=== PATIENT | male | born 1960 | race Caucasian/White ===

== ENCOUNTER 2023-01-13 12:54 | Observation (INO) ==
[2023-01-13 13:43] LABS: Hemoglobin 17.4 g/dl (14.0-18.0); Mean Corpuscular Hemoglobin 29.5 pg (25.0-34.0); Mean Corpuscular Hgb Conc 34.8 g/dL (32.0-36.0); Mean Corpuscular Volume 84.9 fL (80.0-100.0); Platelet Count 290 K/uL (130-400); RDW Standard Deviation 40.5 fL (36.4-46.3); Red Blood Count 5.89 M/uL (4.70-6.10); White Blood Count 9.81 K/ul (4.8-10.8)
[2023-01-13 14:01] LABS: Albumin Globulin Ratio 1.7 (0.9-2); Albumin Level 4.5 gm/dl (3.4-5.0); BUN Creatinine Ratio 12.7 (10-20); Bilirubin,Total 0.4 mg/dl (0.2-1.0); Calcium 9.7 mg/dl (8.6-10.3); Creatinine Clr Calc Pharmacy 83.9 ml/min; Est GFR (African American) 90.2 ml/min; Est GFR (Non-African American) 77.9 ml/min; Globulin 2.7 gm/dl (2.5-4.0); Total Protein 7.2 gm/dl (6.0-8.3)
[2023-01-13 14:16] LABS: INR 0.9 (0.9-1.1); Partial Thromboplastin Ratio 0.9; Partial Thromboplastin Time 24.4 Seconds (21.0-31.0); Prothrombin Time 10.1 Seconds (9.0-12.0)
[2023-01-13 14:29] LABS: ALC (manual) 5.79 K/uL (1.2-3.4); ANC (manual) 3.53 K/uL (1.4-6.5); Basophils % (manual) 1 %; Eosinophils % (manual) 2 %; Lymphocytes # (manual) 1.57 K/uL (1.2-3.4); Lymphocytes % (manual) 16 %; Monocytes % (manual) 2 %; Neutrophils # (manual) 3.53 K/uL (1.40-6.50); Neutrophils % (manual) 36 %; Reactive Lymphocytes # (manual) 4.22 K/uL; Reactive Lymphocytes % (manual) 43 %; Smudge Cells Present
[2023-01-13] MEDS ORDERED: ASPIRIN CHEW 324 MG PO STA (14:53)
[2023-01-13] MEDS ORDERED: NITROGLYCERIN 2% OINTMENT 30GM TUBE EXT STA (14:53)
--- NOTE | 2023-01-13 15:01 | Emergency Department Note ---
Impression & Plan Precordial chest pain, Diaphoresis, History of coronary artery disease, Hypertension ED Provider Note NAME: MAINOR IQBAL AGE: 62 SEX: M : 1960 ARRIVES VIA: Walk-In INFORMANT: [Patient][family] ED PROVIDER(S): [Jimenez Plunkett MD] CHIEF COMPLAINT: Chest pain HISTORY OF PRESENT ILLNESS: The patient is a 62-year-old male who presents to the ER with 2 days of central chest pain without radiation. The pain typically seems to be present at rest. His pain last for about 15 minutes or so. Yesterday, the pain was intense and he was short of breath and sweating. He took 1 nitroglycerin and things seemed better. He took nitroglycerin again later yesterday evening for similar pain without sweating. Today, the patient has had intermittent bouts of chest pain but has not taken nitroglycerin. The pain has not been as severe as yesterday. The patient denies any recent exertional chest pain or shortness of breath. He does have a history of coronary disease and had 1 stent placed in 2010. The patient was to see [facility] cardiology this week, in 2 days. The patient states that he feels very similar to how he felt when he had his previous stent placed. PMHx/PSHx: See Below SOCIAL HISTORY: See Below. PHYSICAL EXAM: GENERAL: Patient is in no acute distress. HEENT: No acute trauma, normocephalic atraumatic, mucous membranes moist, no nasal congestion. NECK: No stridor, no adenopathy, no meningismus, trachea is midline. LUNGS: Clear to auscultation bilaterally, no wheeze, no rhonchi, breath sounds equal. HEART: Without murmurs gallops or rubs, regular rate and rhythm. ABDOMEN: Soft, nontender, bowel sounds positive, no peritonitis. EXTREMITIES: No cyanosis or edema, full range of motion of all the joints without pain or difficulty, no signs for acute trauma. NEUROLOGIC: Oriented x 3, no acute motor or sensory deficits, no focal weakness. SKIN: No rash, no jaundice, no diaphoresis. DIFFERENTIAL DIAGNOSIS: ME, angina, aortic dissection, PE, musculoskeletal pain, reflux, among others. EMERGENCY DEPARTMENT COURSE/PROCEDURES: Prior/Outside records reviewed: Previous cardiology note. ECG per my interpretation: Indication was chest pain. The ECG shows a normal sinus rhythm with a rate of 68. There is no ST elevation, no PVCs. The QTc is 425. Continuous Cardiac Monitoring per my interpretation: An order was placed for continuous cardiac monitoring. The monitor shows a rate of 55 with sinus bradycardia. MEDICAL DECISION MAKING: There is no leukocytosis or worrisome anemia. There is a normal platelet count. No coagulopathy. No renal failure or significant electrolyte abnormality. No concerning liver enzyme elevation. ECG shows a normal sinus rhythm, no ischemia. Cardiac enzyme testing x1 is not consistent with acute cardiac injury. Chest x-ray per my review does not show mediastinal widening, pneumonia or pneumothorax. On exam, the patient was hypertensive. The patient was given nitroglycerin paste. He was given oral aspirin. The patient presents with precordial chest pain. The pain was severe enough yesterday that he was sweating and had to use nitroglycerin. The nitroglycerin did help his discomfort. He has had previous coronary stenting. The patient is in need of a hospital stay and further cardiac work-up. I did speak with the patient and case management. Of note, his blood pressure did seem to improve after the addition of the nitroglycerin paste. DISPOSITION: Patient's presentation and findings warrant a hospital stay. Past Med/Surg History Medical History CAD (coronary atherosclerotic disease) HLD (hyperlipidemia) HTN (hypertension) with goal to be determined Surgical History (Updated 01/13/23 @ 16:05 by Renae Nugent PA-C) H/O shoulder surgery Family History (Updated 01/13/23 @ 16:19 by Renae Nugent PA-C) Mother Coronary heart disease bypass in 70s Father Coronary heart disease bypass in 70s Social History Smoking Status: Never smoker Feels Safe at Home: Yes Allergies Allergies Allergy/AdvReac Type Severity Reaction Status Date / Time pravastatin AdvReac "Didn't Verified 01/13/23 15:04 feel good" rosuvastatin [From Crestor] AdvReac Muscle Pain Verified 01/13/23 15:04 Home Meds Home Medications Medication Instructions Recorded Confirmed aspirin 81 mg tablet,delayed 81 mg PO DAILY 01/06/23 01/13/23 release (Adult Aspirin Regimen) ascorbic acid (vitamin C) 1,000 mg 1,000 mg PO DAILY 01/13/23 01/13/23 tablet (Vitamin C) atorvastatin 20 mg tablet 20 mg PO DAILY 01/13/23 01/13/23 multivitamin 2 tab PO DAILY 01/13/23 01/13/23 nitroglycerin 0.4 mg sublingual See Rx Instructions .Route .COMPLEX 01/13/23 01/13/23 tablet Results & Data (ED) Vital Signs Vital Signs - 24 hr 01/13/23 13:04 01/13/23 15:01 01/13/23 15:01 Temperature 36.6 C Temperature Source Temporal Artery Scan Pulse Rate 68 Pulse Rate [Right Finger] 56 L Pulse Rhythm Respiratory Rate 20 14 Respiratory Effort / Characteristics Non-Labored Non-Labored Spontaneous Respiratory Depth Normal Normal Blood Pressure 201/112 H Blood Pressure [Left Arm] 149/86 H Blood Pressure Mean 141 Blood Pressure Mean [Left Arm] 107 Pulse Oximetry 96 97 97 Oxygen Delivery Method Room Air Room Air Room Air Sepsis Recent Fever Within 48 Hours No Sepsis New/Unexplained Change in Mental Status N/A Sepsis Action Taken by Nursing No Action Required 01/13/23 15:01 01/13/23 15:04 Temperature Temperature Source Pulse Rate 55 L 56 L Pulse Rate [Right Finger] Pulse Rhythm Regular Respiratory Rate 18 Respiratory Effort / Characteristics Respiratory Depth Blood Pressure Blood Pressure [Left Arm] Blood Pressure Mean Blood Pressure Mean [Left Arm] Pulse Oximetry 97 Oxygen Delivery Method Room Air Sepsis Recent Fever Within 48 Hours Sepsis New/Unexplained Change in Mental Status Sepsis Action Taken by [facility] Medications Current Medication List: was personally reviewed by me Laboratory Data Attestation: I reviewed the patient's lab results. 01/13/23 13:18 01/13/23 13:18 Lab Results 01/13/23 01/13/23 01/13/23 Range/Units 13:18 13:18 13:18 WBC 9.81 (4.8-10.8) K/ul RBC 5.89 (4.70-6.10) M/uL Hgb 17.4 (14.0-18.0) g/dl Hct 50.0 (42.0-52.0) % MCV 84.9 (80.0-100.0) fL MCH 29.5 (25.0-34.0) pg MCHC 34.8 (32.0-36.0) g/dL RDW Std Deviation 40.5 (36.4-46.3) fL RDW Coeff of Gabby 13.0 (11.5-14.5) % Plt Count 290 (130-400) K/uL MPV 8.0 L (9.4-12.4) fL Neutrophils % (Manual) 36 % Lymphocytes % (Manual) 16 % Reactive Lymphs % (Man) 43 % Monocytes % (Manual) 2 % Eosinophils % (Manual) 2 % Basophils % (Manual) 1 % Neutrophils # (Manual) 3.53 (1.40-6.50) K/uL Total Absolute Neuts 3.53 (1.4-6.5) K/uL Lymphocytes # (Manual) 1.57 (1.2-3.4) K/uL Reactive Lymphs # 4.22 K/uL Total Abs Lymphocytes 5.79 H (1.2-3.4) K/uL Monocytes # (Manual) 0.20 (0.11-0.59) K/uL Eosinophils # (Manual) 0.20 (0-0.50) K/uL Basophils # (Manual) 0.10 (0-0.2) K/uL Smudge Cells Present Blood Smear Review PT 10.1 (9.0-12.0) Seconds INR 0.9 (0.9-1.1) APTT 24.4 (21.0-31.0) Seconds PTT Ratio 0.9 Sodium 138 (136-145) mmol/L Potassium 4.0 (3.5-5.1) mmol/L Chloride 105 (98-107) mmol/L Carbon Dioxide 28 (21-32) mmol/L Anion Gap 5 (3-11) BUN 13 (6-23) mg/dl Creatinine 1.02 (0.6-1.4) mg/dl Est Cr Clr Drug Dosing 83.9 ml/min Est GFR ( Amer) 90.2 ml/min Est GFR (Non-Af Amer) 77.9 ml/min BUN/Creatinine Ratio 12.7 (10-20) Glucose 110 H (70-99(Fasting)) mg/dl Calcium 9.7 (8.6-10.3) mg/dl Magnesium 2.2 (1.7-2.4) mg/dl Total Bilirubin 0.4 (0.2-1.0) mg/dl AST 20 (13-39) U/L ALT 19 (7-52) U/L Alkaline Phosphatase 61 (34-104) U/L Troponin I High Sens 5.0 (0-20) pg/ml Total Protein 7.2 (6.0-8.3) gm/dl Albumin 4.5 (3.4-5.0) gm/dl Globulin 2.7 (2.5-4.0) gm/dl Albumin/Globulin Ratio 1.7 (0.9-2) Administered Medications Famotidine 20 mg/ Syringe 5 mls @ 2.5 mls/min IV QAM FABRICE Stop: 02/12/23 19:29 Last Admin: 01/13/23 20:15 Dose: 2.5 mls/min Documented By: DIAMOND Discontinued Medications Al Hydrox/Mg Hydrox/Simethicone (Aluminum/Magnesium Susp 30 Ml Udc) 15 ml PO NOW STA Stop: 01/13/23 16:10 Last Admin: 01/13/23 16:27 Dose: 15 ml Documented By: FABRICIO Aspirin (Aspirin Chew 324 Mg) 324 mg PO NOW STA Stop: 01/13/23 14:54 Last Admin: 01/13/23 14:58 Dose: 324 mg Documented By: JENNIFER Nitroglycerin (Nitroglycerin 2% Ointment 30gm Tube) 1 inch EXT NOW STA Stop: 01/13/23 14:54 Last Admin: 01/13/23 14:58 Dose: 1 inch Documented By: JENNIFER Imaging Data Radiologist's Impression: Chest X-Ray 01/13/23 13:07 XR chest 1V not portable HISTORY: 62 years-old Male Chest pain, nonspecific COMPARISON: None TECHNIQUE: PA view of the chest FINDINGS: Cardiomediastinal and hilar silhouettes are within normal limits. There is no pneumothorax, pleural effusion, airspace consolidation or pulmonary edema. Bones appear grossly intact. IMPRESSION: No acute process. ACT 112: Negative or not required by law. The above report was generated using voice recognition software. It may contain grammatical, syntax or spelling errors. Electronically signed by: Louie Neff M.D. 01/13/2023 3:09 PM Discharge Plan Visit Data Chief Complaint: Chest Pain Stated Complaint: CHEST PAIN ED Provider: Jimenez Plunkett Discharge Problem: Precordial chest pain, Diaphoresis, History of coronary artery disease, H ypertension Patient Disposition: Admitted As Inpatient Condition: Fair Discharge Instructions Interventions: ED Discharge Assessment Last Done: 01/13/23 18:58 Hypertension Qualifiers: Hypertension type: unspecified Qualified Code(s): I10 - Essential (primary) hypertension
--- NOTE | 2023-01-13 15:11 | XRay Report ---
XR chest 1V not portable HISTORY: 62 years-old Male Chest pain, nonspecific COMPARISON: None TECHNIQUE: PA view of the chest FINDINGS: Cardiomediastinal and hilar silhouettes are within normal limits. There is no pneumothorax, pleural e ffusion, airspace consolidation or pulmonary edema. Bones appear grossly intact. IMPRESSION: No acute process. ACT 112: Negative or not required by law. The above report was generated using voice recognition software. It may contain grammatical, syntax o r spelling errors. Electronically signed by: Louie Neff M.D. 01/13/2023 3:09 PM
--- NOTE | 2023-01-13 15:18 | History & Physical Report ---
Date of Service January 13, 2023 Assessment & Plan (1) Chest pain: Plan: 62yo male w/ some noncompliance w/ medical management at home with hx CAD/BONNIE to LAD and in-stent [facility] presented with chest pain x 2 days, central in nature without radiation, feeling similar to when he had initial episodes. CXR w/o acute process EKG NSR without ST elevation, trop 5.0 on initial high sensitivity testing Admit to med/tele Trend troponin x2 additional sets Schedule nitro-paste q6h, monitor BP Lisinopril 5mg to start in AM, encourage compliance/titrate as needed Hydralazine available for further significant elevations ECHO ordered Continue ASA 81mg daily GI cocktail x 1, monitor response (given improvement w/ nitro, underlying reflux/Gaviscom use OTC) -- schedule pepcid IVP daily in meantime, consider PPI Pain control/antiemetics prn Cards consult ([place] [facility], prior followed by Dr Islas from [facility]) messaged Dr Silveira, will make NPO at midnight for possible consideration for cath in AM given similar symptoms when having instent thrombosis, however prior cath report rec medical management encouragement to be taken for continued counseling in adherance/importance of medications, daily ASA and statin use as well as BP control EKG w/ CP Heparin SQ Monitor labs, A1c, lipids in AM (2) CAD (coronary atherosclerotic disease): Plan: Hx CAD s/p BONNIE to LAD w/ instent-stenosis in November 2011, rec'd to continue medical management and aggressive risk factor/lifestyle modifications. Followed previously by [facility], Dr Sabino Love but switching to Dr Silveira -- office visit in August noting BP 140/80s, NOT taking antihypertensives Dr Silveira consulted, discussed and will make NPO at midnight in case of cath cons ideration for tomorrow Continue nitro-paste as above, lipitor 20mg (for now), ASA 81mg daily Management as outlined above Compliance w/ medical regiment o be encouraged (3) HTN (hypertension) with goal to be determined: Plan: BP elevated on admission significantly to 200s/100s, nitropaste provided Per most recent cardiology note from August 2022 noting patient w/ uncontrolled HTN, not interesting in taking his lisinopril at that time -- encouraged compliance, consider switching to losartan if isssues Low salt diet encouraged AHA diet Nitropaste for CP as above, hydralazine available PRN Monitor BP (4) HLD (hyperlipidemia): Plan: Also noting uncontrolled cholesterol and was provided GoodRx coupon for 12.18$ for 90 day supply but reported too expensive during prior office visit -- he notes he had not been taking this but has been more compliant, but not taking every day Given hx CAD/instent thrombosis as above, likely should be on high intensity statin. Issues w/ pravastatin/crestor in the past Continue lipitor 20mg daily for now Lipid panel in am, adjustment in statin pending further work-up/eval History of Present Illness Chief Complaint: chest pain x 2 days Primary Care Provider: NO PCP 62yo male with PMHx significant for CAD (cath 2010 with BONNIE to LAD, positive stress testing in November 2011 and cath following showing stent present in proximal LAD which has 20% in-stent restenosis, 30% ostial diagonal disease present) presenting with mid chest pain x 2 days. Most recent exercise echo Mar 2021 without inducible ischemia. Pain reported present at rest, lasting about 15minutes ago starting 2 days ago. He reports he had taken a nitro w/ improvement yesterday w/ pain/diaphoresis and then recurrence of pain in the evening and took another dose of nitro in the evening. He denies taking any viagra at that time. Per patient/, his pain occurs at rest and is improved with activity and had been that way w/ his prior stent which he feels this pain is similar to. Pain is mid-sternum, without radiation. Some improvement reported since nitropaste in place, pain not increased witnessing patient ambulating back from the bathroom. BP 201/112 on arrival, currently 149/86. No lightheaded/dizziness, nausea/vomiting. He is NOT on BP medication at present, but discussed likely benefit for medical management. Denies high salt diet/processed meats/hot dogs/soups/etc. does a lot of the cooking, does endorse using sea salt when cooking. No smoking/chewing tobacco, alcohol use reported. Typically is very active laly at baseline. When asked about any underlying reflux, he does note he does have some reflux but that this pain is different. Not on any PPI/H2. He notes he takes OTC Gaviscom for reflux pain when this occurs, picture on his phone. Family history with mom/dad w/ CAD, reports they had bypass in their 70s. He notes he used to bring his mom over for office visits with Dr Love and was planning to switch to [facility] cards w/ Dr Love but schedule full and getting in next week with Dr Silveira. He is also in need of a new primary care provider. Of note, patient did have right shoulder surgery in the past year in [place], reported no post-operative complications. They are hoping to travel to [place] next (via care) ER Course: CXR w/o acute process WBC wnl, noting elevated lymphocytes, naresh/flow pending per protocol. Trop 5.0. EKG w/ NSR, no ST segment changes Given 324mg ASA on arrival (does endorse he has been taking a baby aspirin daily) Full code Allergies Allergy/AdvReac Type Severity Reaction Status Date / Time pravastatin AdvReac "Didn't Verified 01/13/23 15:04 feel good" rosuvastatin [From Crestor] AdvReac Muscle Pain Verified 01/13/23 15:04 Home Medications Medication Instructions Recorded Confirmed Type aspirin 81 mg tablet,delayed 81 mg PO DAILY 01/06/23 01/13/23 History release (Adult Aspirin Regimen) ascorbic acid (vitamin C) 1,000 mg 1,000 mg PO DAILY 01/13/23 01/13/23 History tablet (Vitamin C) atorvastatin 20 mg tablet 20 mg PO DAILY 01/13/23 01/13/23 History multivitamin 2 tab PO DAILY 01/13/23 01/13/23 History nitroglycerin 0.4 mg sublingual See Rx Instructions .Route .COMPLEX 01/13/23 01/13/23 History tablet Past Med/Surg History Medical History CAD (coronary atherosclerotic disease) HLD (hyperlipidemia) HTN (hypertension) with goal to be determined Surgical History (Updated 01/13/23 @ 16:05 by Renae Nugent PA-C) H/O shoulder surgery Family History (Updated 01/13/23 @ 16:19 by Renae Nugent PA-C) Mother Coronary heart disease bypass in 70s Father Coronary heart disease bypass in 70s Social History Smoking Status: Former smoker Hx Alcohol Use: No Hx Substance Use: No 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 Required: No Beliefs That Will Affect Care: None Current Living Situation: Spouse Current Living Situation Comment: Lives at home with Feels Safe at Home: Yes Safety Concerns: Feels Safe At This Time Assistive Devices: Denture - Upper, Denture - Lower and Glasses Review of Systems Review of Systems: All systems reviewed & are unremarkable except as noted in HPI & below Physical Exam Physical Exam: General: WD/WN male ambulating back from bathroom, at bedside, NAD HEENT: head normocephalic, atraumatic, mmm, trachea midline Chest: nontender Resp: CTA, no w/c/r, on room air CV: regular (slightly bradycardic to the 50s), no significant mrg, no pitting edema/calf tenderness, pulses palpable GI: +BS, soft/NT no welch MSK/Neuro: prior R shoulder surgery noted, nonfocal on exam, no slurred speech/facial droop Psych: AOx3, pleasant and cooperative Results & Data Results & Data Vital Signs (Past 12 Hours) Vital Signs Temp Pulse Pulse Resp BP BP Pulse Ox 01/13/23 15:01 55 L 18 97 01/13/23 15:01 56 L 14 149/86 H 97 01/13/23 15:01 97 01/13/23 13:04 36.6 C 68 20 201/112 H 96 O2 Del Method 01/13/23 15:01 Room Air 01/13/23 15:01 Room Air 01/13/23 15:01 Room Air 01/13/23 13:04 Room Air Laboratory Results 01/13/23 01/13/23 01/13/23 Range/Units 13:18 13:18 13:18 WBC (4.8-10.8) K/ul RBC (4.70-6.10) M/uL Hgb (14.0-18.0) g/dl Hct (42.0-52.0) % MCV (80.0-100.0) fL MCH (25.0-34.0) pg MCHC (32.0-36.0) g/dL RDW Std Deviation (36.4-46.3) fL RDW Coeff of Gabby (11.5-14.5) % Plt Count (130-400) K/uL MPV (9.4-12.4) fL Neutrophils % (Manual) % Lymphocytes % (Manual) % Reactive Lymphs % (Man) % Monocytes % (Manual) % Eosinophils % (Manual) % Basophils % (Manual) % Neutrophils # (Manual) (1.40-6.50) K/uL Total Absolute Neuts (1.4-6.5) K/uL Lymphocytes # (Manual) (1.2-3.4) K/uL Reactive Lymphs # K/uL Total Abs Lymphocytes (1.2-3.4) K/uL Monocytes # (Manual) (0.11-0.59) K/uL Eosinophils # (Manual) (0-0.50) K/uL Basophils # (Manual) (0-0.2) K/uL Smudge Cells Blood Smear Review PT 10.1 (9.0-12.0) Seconds INR 0.9 (0.9-1.1) APTT 24.4 (21.0-31.0) Seconds PTT Ratio 0.9 Sodium 138 (136-145) mmol/L Potassium 4.0 (3.5-5.1) mmol/L Chloride 105 (98-107) mmol/L Carbon Dioxide 28 (21-32) mmol/L Anion Gap 5 (3-11) BUN 13 (6-23) mg/dl Creatinine 1.02 (0.6-1.4) mg/dl Est Cr Clr Drug Dosing 83.9 ml/min Est GFR ( Amer) 90.2 ml/min Est GFR (Non-Af Amer) 77.9 ml/min BUN/Creatinine Ratio 12.7 (10-20) Glucose 110 H (70-99(Fasting)) mg/dl Calcium 9.7 (8.6-10.3) mg/dl Magnesium 2.2 (1.7-2.4) mg/dl Total Bilirubin 0.4 (0.2-1.0) mg/dl AST 20 (13-39) U/L ALT 19 (7-52) U/L Alkaline Phosphatase 61 (34-104) U/L Troponin I High Sens 5.0 (0-20) pg/ml Total Protein 7.2 (6.0-8.3) gm/dl Albumin 4.5 (3.4-5.0) gm/dl Globulin 2.7 (2.5-4.0) gm/dl Albumin/Globulin Ratio 1.7 (0.9-2) Flow Cytometry Comment Pending 01/13/23 Range/Units 13:18 WBC 9.81 (4.8-10.8) K/ul RBC 5.89 (4.70-6.10) M/uL Hgb 17.4 (14.0-18.0) g/dl Hct 50.0 (42.0-52.0) % MCV 84.9 (80.0-100.0) fL MCH 29.5 (25.0-34.0) pg MCHC 34.8 (32.0-36.0) g/dL RDW Std Deviation 40.5 (36.4-46.3) fL RDW Coeff of Gabby 13.0 (11.5-14.5) % Plt Count 290 (130-400) K/uL MPV 8.0 L (9.4-12.4) fL Neutrophils % (Manual) 36 % Lymphocytes % (Manual) 16 % Reactive Lymphs % (Man) 43 % Monocytes % (Manual) 2 % Eosinophils % (Manual) 2 % Basophils % (Manual) 1 % Neutrophils # (Manual) 3.53 (1.40-6.50) K/uL Total Absolute Neuts 3.53 (1.4-6.5) K/uL Lymphocytes # (Manual) 1.57 (1.2-3.4) K/uL Reactive Lymphs # 4.22 K/uL Total Abs Lymphocytes 5.79 H (1.2-3.4) K/uL Monocytes # (Manual) 0.20 (0.11-0.59) K/uL Eosinophils # (Manual) 0.20 (0-0.50) K/uL Basophils # (Manual) 0.10 (0-0.2) K/uL Smudge Cells Present Blood Smear Review PT (9.0-12.0) Seconds INR (0.9-1.1) APTT (21.0-31.0) Seconds PTT Ratio Sodium (136-145) mmol/L Potassium (3.5-5.1) mmol/L Chloride (98-107) mmol/L Carbon Dioxide (21-32) mmol/L Anion Gap (3-11) BUN (6-23) mg/dl Creatinine (0.6-1.4) mg/dl Est Cr Clr Drug Dosing ml/min Est GFR ( Amer) ml/min Est GFR (Non-Af Amer) ml/min BUN/Creatinine Ratio (10-20) Glucose (70-99(Fasting)) mg/dl Calcium (8.6-10.3) mg/dl Magnesium (1.7-2.4) mg/dl Total Bilirubin (0.2-1.0) mg/dl AST (13-39) U/L ALT (7-52) U/L Alkaline Phosphatase (34-104) U/L Troponin I High Sens (0-20) pg/ml Total Protein (6.0-8.3) gm/dl Albumin (3.4-5.0) gm/dl Globulin (2.5-4.0) gm/dl Albumin/Globulin Ratio (0.9-2) Flow Cytometry Comment Diagnostic Findings Chest X-Ray 01/13/23 13:07 XR chest 1V not portable HISTORY: 62 years-old Male Chest pain, nonspecific COMPARISON: None TECHNIQUE: PA view of the chest FINDINGS: Cardiomediastinal and hilar silhouettes are within normal limits. There is no pneumothorax, pleural effusion, airspace consolidation or pulmonary edema. Bones appear grossly intact. IMPRESSION: No acute process. ACT 112: Negative or not required by law. The above report was generated using voice recognition software. It may contain grammatical, syntax or spelling errors. Electronically signed by: Louie Neff M.D. 01/13/2023 3:09 PM ECG Additional Comments: EKG w/ NSR with rate 68bpm No significant ST elevation/TWI Supervising Physician Co-Signing Physician Notes I personally saw and examined the patient. I verified all karimi points and agree with Renae Nugent PA-C with the following exceptions and/or additions: 62 year old male with known CAD and non compliance with medications presents to the ER with chest pain both at rest and on exertion. At rest chest pains resolving with nitroglycerin at home after 30 minutes. O/E A&Ox3, HS RRR, no murmurs, Chest CTAB, Abdo SNT, no pedal edema A/P Chest pain / coronary artery disease - concern for unstable/stable angina but possibly just non compliance with blood pressure medications. Will defer heparin drip unless significant troponin rise. ASA, lisinopril, atorvastatin. NPO, consult cardiology tomorrow for consideration of cardiac catheterization. PG Care Time/CCT Total # of Minutes Spent Total Time Spent with Patient: Total time spent is greater than 50% in coordination of care (as documented) at patient's floor/unit and/or counseling patient: Coding Level of Care Code 77001 INT INP/OBS CARE 2/55MIN Diagnoses Chest pain R07.9 CAD (coronary atherosclerotic disease) I25.10 HTN (hypertension) with goal to be determined I10 HLD (hyperlipidemia) E78.5
[2023-01-13 15:34] LABS: Magnesium 2.2 mg/dl (1.7-2.4)
--- NOTE | 2023-01-13 15:43 | Electrocardiogram Report ---
Test Reason : Blood Pressure : / mmHG Vent. Rate : 068 BPM Atrial Rate : 068 BPM P-R Int : 118 ms QRS Dur : 096 ms QT Int : 400 ms P-R-T Axes : 082 -03 038 degrees QTc Int : 425 ms Normal sinus rhythm Normal ECG No previous ECGs available Confirmed by Hiro Love ([id number]) on 01/13/2023 3:43:28 PM Referred By: Confirmed By:Hiro Love
[2023-01-13] MEDS ORDERED: ALUMINUM/MAGNESIUM SUSP 30 ML UDC PO STA (16:09)
[2023-01-13] MEDS ORDERED: NITROGLYCERIN 2% OINTMENT 30GM TUBE EXT SCH (16:30)
[2023-01-13] MEDS ORDERED: MoRPHine SULFATE 2 MG/ML CARP IV PRN (18:57)
[2023-01-13] MEDS ORDERED: ACETAMINOPHEN 325 MG TAB PO PRN (18:57)
[2023-01-13] MEDS ORDERED: hydrALAZINE HCL 20 MG/ML VIAL IV PRN (18:57)
[2023-01-13] MEDS ORDERED: ONDANSETRON INJ 2 MG/ML 2 ML VIAL IV PRN (18:57)
[2023-01-13] MEDS: FAMOTIDINE 20 MG in SYRINGE 3 ML IV SCH (20:15)
[2023-01-13] MEDS: HEPARIN SOD 5,000 UNIT/0.5 ML VIAL SQ SCH (22:20)
[2023-01-14] MEDS: NITROGLYCERIN 2% OINTMENT 30GM TUBE EXT SCH ×3 (00:43→09:54)
[2023-01-14 07:04] LABS: Hematocrit (blood only) 44.8 % (42.0-52.0); Hemoglobin 15.3 g/dl (14.0-18.0); Mean Corpuscular Hemoglobin 29.3 pg (25.0-34.0); Mean Corpuscular Hgb Conc 34.2 g/dL (32.0-36.0); Mean Corpuscular Volume 85.7 fL (80.0-100.0); Mean Platelet Volume 8.3 fL (9.4-12.4); Platelet Count 220 K/uL (130-400); RDW Coefficient of Variation 13.2 % (11.5-14.5); RDW Standard Deviation 41.1 fL (36.4-46.3); Red Blood Count 5.23 M/uL (4.70-6.10); White Blood Count 9.32 K/ul (4.8-10.8)
[2023-01-14 07:31] LABS: Albumin Globulin Ratio 1.7 (0.9-2); Albumin Level 3.8 gm/dl (3.4-5.0); BUN Creatinine Ratio 16.3 (10-20); Bilirubin,Total 0.7 mg/dl (0.2-1.0); Calcium 8.8 mg/dl (8.6-10.3); Chol HDL Ratio 4.4 (0-5); Creatinine Clr Calc Pharmacy 82.4 ml/min; Est GFR (African American) 88.1 ml/min; Est GFR (Non-African American) 76.1 ml/min; Globulin 2.2 gm/dl (2.5-4.0)
[2023-01-14 07:35] LABS: Prothrombin Time 10.9 Seconds (9.0-12.0)
[2023-01-14 07:44] LABS: Estimated Average Glucose 134 mg/dl; Hemoglobin A1C 6.3 % (4.5-5.6)
[2023-01-14] MEDS: lisinopril 5 MG TAB PO SCH (08:08)
[2023-01-14] MEDS: ATORVASTATIN 20 MG TAB PO SCH (08:08)
[2023-01-14] MEDS: ASPIRIN 81 MG ECTAB PO SCH (08:08)
[2023-01-14] MEDS: HEPARIN SOD 5,000 UNIT/0.5 ML VIAL SQ SCH ×2 (09:53→21:13)
[2023-01-14] MEDS: FAMOTIDINE 20 MG in SYRINGE 3 ML IV SCH (09:53)
[2023-01-14] MEDS ORDERED: HEPARIN (PORCINE) 1000 UNIT/ML 10 ML (CATH LAB USE ONLY) ONE (11:27)
[2023-01-14] MEDS ORDERED: niCARdipine HCL INJ 2.5 MG/ML 10 ML AMP ONE (11:27)
[2023-01-14] MEDS ORDERED: MIDAZOLAM HCL 1 MG/ML 2ML VIAL ONE (11:27)
[2023-01-14] MEDS ORDERED: fentaNYL citrate PF 100 MCG/2 ML VIAL ONE (11:28)
[2023-01-14] MEDS ORDERED: NITROGLYCERIN/D5W 100MCG/ML 20ML SYR ONE (11:28)
[2023-01-14] MEDS ORDERED: CLOPIDOGREL BISULFATE 300 MG TAB ONE (12:50)
--- NOTE | 2023-01-14 13:50 | Hospitalist Progress Note ---
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 CXR w/o acute process EKG NSR without ST elevation, trop negative cardiology consulted The patient was taken to the Monogram Operator I was just informed that the patient had an 80% stenosis in the first diagonal artery that got a drug-eluting stent. Also has intermediate distal LM/proximal LAD disease. No surgery yet. Noted that he was started on Plavix Continue Lipitor, aspirin, STACIA inhibitor (2) CAD (coronary atherosclerotic disease): Plan: Hx CAD s/p BONNIE to LAD w/ instent-stenosis in November 2011, rec'd to continue medical management and aggressive risk factor/lifestyle modifications. Followed previously by ju[facility] francisco wynn, Dr Sabino Love but switching to Dr Silveira -- office visit in August noting BP 140/80s, NOT taking antihypertensives Compliance w/ medical regiment o be encouraged Noted A1c of 6.3. patient is not known to be a diabetic. Patient states that he does not want to get started on hypoglycemic agents and wants to work on lifestyle modification and diet control. (3) HTN (hypertension) with goal to be determined: Plan: BP elevated on admission significantly to 200s/100s, nitropaste provided Per most recent cardiology note from August 2022 noting patient w/ uncontrolled HTN, not interesting in taking his lisinopril at that time -- encouraged compliance, consider switching to losartan if isssues Low salt diet encouraged AHA diet Monitor BP (4) HLD (hyperlipidemia): Plan: Also noting uncontrolled cholesterol and was provided GoodRx coupon for 12.18$ for 90 day supply but reported too expensive during prior office visit -- he notes he had not been taking this but has been more compliant, but not taking every day Given hx CAD/instent thrombosis as above, likely should be on high intensity statin. Issues w/ pravastatin/crestor in the past Continue lipitor 20mg daily for now Plan Plan to discharge tomorrow Admission and Anticipated Discharge Date Admission Date: January 13, 2023 Subjective patient was complaining of ongoing chest pain when I saw him earlier. He was getting ready to go to the cardiac Monogram Operator. He denies shortness of breath. Review of Systems Review of Systems: All systems reviewed & are unremarkable except as noted in Subjective Physical Exam Physical Exam: general: Awake, conversant Heart: S1, S2/regular rate and rhythm, no murmur rubs or gallops Lungs: Clear to auscultation bilaterally. Normal effort Abdomen: Soft/nontender/nondistended. No hepatosplenomegaly Extremities: No clubbing/cyanosis. No edema Behavior: Appropriate, cooperative Results & Data Results & Data Vital Signs (Past 12 Hours) Vital Signs Temp Pulse Pulse Pulse Resp BP BP 01/14/23 13:30 52 L 16 128/65 01/14/23 13:15 51 L 16 113/65 01/14/23 13:00 52 L 16 113/64 01/14/23 09:26 01/14/23 07:52 36.7 C 60 18 137/78 01/14/23 07:29 48 L 01/14/23 03:14 36.4 C L 47 L 16 121/70 01/14/23 02:12 49 L Pulse Ox O2 Del Method 01/14/23 13:30 94 Room Air 01/14/23 13:15 94 Room Air 01/14/23 13:00 94 Room Air 01/14/23 09:26 Room Air 01/14/23 07:52 95 Room Air 01/14/23 07:29 01/14/23 03:14 96 Room Air 01/14/23 02:12 Laboratory Results Abnormal lab results 01/13/23 01/13/23 01/14/23 Range/Units 13:18 13:18 06:24 MPV 8.3 L (9.4-12.4) fL Total Abs Lymphocytes 5.79 H (1.2-3.4) K/uL Glucose 110 H (70-99(Fasting)) mg/dl Hemoglobin A1c (4.5-5.6) % Globulin (2.5-4.0) gm/dl Triglycerides (0-150) mg/dl VLDL Cholesterol, Calc (0-30) mg/dl 01/14/23 01/14/23 Range/Units 06:24 06:24 MPV (9.4-12.4) fL Total Abs Lymphocytes (1.2-3.4) K/uL Glucose 105 H (70-99(Fasting)) mg/dl Hemoglobin A1c 6.3 H (4.5-5.6) % Globulin 2.2 L (2.5-4.0) gm/dl Triglycerides 162 H (0-150) mg/dl VLDL Cholesterol, Calc 32 H (0-30) mg/dl Diagnostic Findings Chest X-Ray 01/13/23 13:07 XR chest 1V not portable HISTORY: 62 years-old Male Chest pain, nonspecific COMPARISON: None TECHNIQUE: PA view of the chest FINDINGS: Cardiomediastinal and hilar silhouettes are within normal limits. There is no pneumothorax, pleural effusion, airspace consolidation or pulmonary edema. Bones appear grossly intact. IMPRESSION: No acute process. ACT 112: Negative or not required by law. The above report was generated using voice recognition software. It may contain grammatical, syntax or spelling errors. Electronically signed by: Louie Neff M.D. 01/13/2023 3:09 PM PG Care Time/CCT Total # of Minutes Spent Total Time Spent with Patient: Total time spent is greater than 50% in coordination of care (as documented) at patient's floor/unit and/or counseling patient: Coding Level of Care Code 50208 SUB INP/OBS CARE 2/35MIN Diagnoses Chest pain R07.9 CAD (coronary atherosclerotic disease) I25.10 HTN (hypertension) with goal to be determined I10 HLD (hyperlipidemia) E78.5
--- NOTE | 2023-01-14 15:18 | XCELERA ---
[id number] \\[id number]
--- NOTE | 2023-01-14 15:55 | Electrocardiogram Report ---
Test Reason : Blood Pressure : / mmHG Vent. Rate : 052 BPM Atrial Rate : 052 BPM P-R Int : 128 ms QRS Dur : 090 ms QT Int : 462 ms P-R-T Axes : 068 007 032 degrees QTc Int : 429 ms Sinus bradycardia Otherwise Normal ECG When compared with ECG of 13-JAN-2023 13:13, No significant change Confirmed by Hiro Love ([id number]) on 01/14/2023 3:55:34 PM Referred By: REFERRED SELF Confirmed By:Hiro Love
--- NOTE | 2023-01-14 16:00 | Electrocardiogram Report ---
Test Reason : Blood Pressure : / mmHG Vent. Rate : 051 BPM Atrial Rate : 051 BPM P-R Int : 130 ms QRS Dur : 100 ms QT Int : 462 ms P-R-T Axes : 066 003 -01 degrees QTc Int : 425 ms Sinus bradycardia Otherwise normal ECG When compared with ECG of 14-JAN-2023 07:03, (unconfirmed) Criteria for Septal infarct are no longer Present Inverted T waves have replaced nonspecific T wave abnormality in Inferior leads Confirmed by Hiro Love ([id number]) on 01/14/2023 4:00:39 PM Referred By: REFERRED SELF Confirmed By:Hiro Love
--- NOTE | 2023-01-14 22:30 | Post Anesthesia Assessment ---
Date of Service January 14, 2023 Post Sedation Assessment Vital Signs Temp Pulse Pulse Pulse Resp BP BP 01/14/23 19:44 97.7 F 54 L 18 113/64 01/14/23 18:57 01/14/23 16:23 128/71 01/14/23 15:23 61 18 120/68 01/14/23 14:53 57 L 116/52 L 01/14/23 14:23 97.7 F 54 L 18 144/82 H 01/14/23 13:45 52 L 16 136/72 01/14/23 13:30 52 L 16 128/65 01/14/23 13:15 51 L 16 113/65 01/14/23 13:00 52 L 16 113/64 01/14/23 09:26 01/14/23 07:52 98.1 F 60 18 137/78 01/14/23 07:29 48 L 01/14/23 03:14 97.5 F L 47 L 16 121/70 01/14/23 02:12 49 L 01/14/23 00:30 97.5 F L 50 L 18 149/83 H 01/13/23 23:00 51 L Pulse Ox Pulse Ox O2 Del Method O2 Del Method 01/14/23 19:44 Room Air 01/14/23 18:57 94 Room Air 01/14/23 16:23 01/14/23 15:23 01/14/23 14:53 01/14/23 14:23 96 Room Air 01/14/23 13:45 94 Room Air 01/14/23 13:30 94 Room Air 01/14/23 13:15 94 Room Air 01/14/23 13:00 94 Room Air 01/14/23 09:26 Room Air 01/14/23 07:52 95 Room Air 01/14/23 07:29 01/14/23 03:14 96 Room Air 01/14/23 02:12 01/14/23 00:30 96 Room Air 01/13/23 23:00 Recovery Score Activity: Moves 4 extremities Respiration: Deep Breath/Cough Circulation: +/-20% PreAnes Value Consciousness: Fully Awake Oxygen Saturation: > 92% On Room Air Post Anesthesia Score: 10 Discharge Sedation Level of Care: Fast Track Phase II Post Sedation Plan On clinical assessment, the patient appears to have tolerated the sedation without complications. Patient is recovering as anticipated. Patient will continue to be monitored by nursing and may be discharged when paul tion discharge criteria are met per below protocol. Upon Completions of procedure up to 15 minutes continue every 5 minute vital signs and the P.A.R. score; then discharge to a Phase I or Fast Track to Phase II per the following guidelines: * Discharge Patient to appropriate Phase II area if PAR is 8 or greater or return to pre- procedure baseline. The post - procedure orders will be as directed. * If PAR score is less than 8 or not return to pre-procedure baseline then patient will follow Phase I monitoring till PAR is reached for Phase II. The Phase I may be done in procedure room or may call to secure a Phase I area. * If naloxone or flumazenil are used for reversal, hold in Phase I for continued monitoring from when last reversal dose was given for a minimum of 60 minutes or longer pending the nurse and/or physician discretion of patient condition before discharge to Phase II. Please call the Sedation Physician to re-evaluate and complete post-note for discharge to Phase II area. Do NOT discharge from procedure sedation or Phase 1 until post- sedation evaluation note is complete by procedure /sedation MD Sedation Discharge Instructions to be given to the patient at discharge to home.
--- NOTE | 2023-01-14 22:30 | Pre Anesthesia Assessment ---
Date of Service January 14, 2023 Pre Sedation Assessment Vital Signs Temp Pulse Pulse Pulse Resp BP BP 01/14/23 19:44 97.7 F 54 L 18 113/64 01/14/23 18:57 01/14/23 16:23 128/71 01/14/23 15:23 61 18 120/68 01/14/23 14:53 57 L 116/52 L 01/14/23 14:23 97.7 F 54 L 18 144/82 H 01/14/23 13:45 52 L 16 136/72 01/14/23 13:30 52 L 16 128/65 01/14/23 13:15 51 L 16 113/65 01/14/23 13:00 52 L 16 113/64 01/14/23 09:26 01/14/23 07:52 98.1 F 60 18 137/78 01/14/23 07:29 48 L 01/14/23 03:14 97.5 F L 47 L 16 121/70 01/14/23 02:12 49 L 01/14/23 00:30 97.5 F L 50 L 18 149/83 H 01/13/23 23:00 51 L Pulse Ox Pulse Ox O2 Del Method O2 Del Method 01/14/23 19:44 Room Air 01/14/23 18:57 94 Room Air 01/14/23 16:23 01/14/23 15:23 01/14/23 14:53 01/14/23 14:23 96 Room Air 01/14/23 13:45 94 Room Air 01/14/23 13:30 94 Room Air 01/14/23 13:15 94 Room Air 01/14/23 13:00 94 Room Air 01/14/23 09:26 Room Air 01/14/23 07:52 95 Room Air 01/14/23 07:29 01/14/23 03:14 96 Room Air 01/14/23 02:12 01/14/23 00:30 96 Room Air 01/13/23 23:00 Cardiovascular RRR, no murmur, no edema Respiratory normal respiratory effort, lungs clear to auscultation Pre-Sedation Airway Assessment Smoking Status: Former smoker Hx Sleep Apnea: No Hx Difficult Intubation: No Short, Thick Neck: No Thyromental Distance: > or= 3.5 Finger Breadths Oral Cavity: + WNL Mallampati Class: III ASA: ASA3 Procedure Planning Contraindications for Sedation: none Current Medications Reviewed: Yes Notes The planned sedation has been discussed with the patient. Informed Consent was obtained. I have identified the patient, determined the appropriateness of sedation and have assessed the patient immediately prior to the procedure. All medicine(s) and interventions are by my order.
--- NOTE | 2023-01-14 22:39 | Cardiac Catheterization ---
[facility] Data: [place] Machine Operator Cardiac Status Clinical evaluation leading to the procedure CAD Presenation: Unstable angina Anginal Classification: CCS IV Diagnostic Physicians Name: Federico Silveira MD Closure Device Recommendations: PCI without planned CABG Cardiac Cath Procedure Full Procedure Date January 14, 2023 Pre-Procedure Diagnosis Pre-Procedure Diagnosis: Angina and CAD AUC Score AUC Score: 7 Post-Procedure Diagnosis Post-Procedure Diagnosis: Severe CAD and Successful PCI Procedure(s) Performed Procedure(s) Performed: Coronary Angiography, Left Heart Cath, Drug Eluting Stent, IVUS and Fractional Flow [employer] Supervisor Federico Silveira MD Roof Technician(s) Jamal Estimated Blood Loss Estimated Blood Loss: 15 Medication(s) Medication(s): Clopidogrel, Fentanyl, Heparin, Lidocaine 1%, Nicardipine, Nitroglycerin and Versed Summary of Findings Indication: Suspected ACS. History of prior LAD stent Access: 6 Fr right radial artery Catheters: [place], EBU 3.5 guide Findings: LM -medium caliber, 40% distal stenosis prior to bifurcation angiographically (circumferential, mildly calcified disease in distal segment CSA approximately 6.0 mm) LAD -medium caliber, 40-50% ostial/proximal disease, mid segment stent patent with 30% in-stent restenosis, 30% late mid stenosis with myocardial bridging, distal vessel without significant disease and extends around apex. Large D1 with 80% ostial stenosis Circumflex - medium caliber, 50% ostial/proximal stenosis, remainder of mid/distal vessel without significant disease. Large high OM1 with 40% ostial stenosis RCA -dominant, medium caliber 20 to 30% proximal disease, midsegment luminal irregularities, distal vessel/RPDA without significant disease. LVEDP -8 IVUS/FFR of left main: Left main cannulated with EBU 3.5 guide Prowater wire placed into distal LAD Program Engineer 50 wire navigated into distal D1 Perales IVUS catheter placed into mid LAD. Pullback revealed mild in-stent restenosis in distal aspect of stent. 30% disease around takeoff of D1, moderate ostial LAD stenosis with minimal calcium (CSA 5.4 mm). Moderate to severe distal left main disease just prior to bifurcation, mildly calcified (CSA around 6.0 mm). Prowater wire removed Perales FFR wire placed to mid LAD Proximal LAD IFR 0.93 FFR wire removed from LAD and placed to mid OM 1 Proximal OM1 IFR 0.98 FFR wire removed from OM1 and navigated into D1 Proximal D1 IFR 0.87 Decision to proceed with PCI of ostial D1 stenosis -- PCI -- Antithrombotic therapy: Heparin, clopidogrel Procedure: Pre-procedure flow GIACOMO 3 FFR wire placed back down LAD, pilot control operator [address] in D1 Ostial D1 lesion predilated with 2.5 compliant balloon Dilated lesion stented with 2.75 x 12 mm Xience drug-eluting stent Stent post-dilated with stent balloon IC vasodilators administered for spasm Repeat IVUS of diagonal revealed well apposed/well-expanded stent Repeat IVUS of LAD revealed no significant obstruction of LAD from ostial diagonal stent and no apparent proximal LAD complications. Post procedure GIACOMO 3 flow, stent well expanded with minimal residual stenosis and no apparent cardiac complications. Arterial Closure: TR band Summary: 1. Multivessel vessel coronary artery disease -80% ostial first diagonal (IFR 0.87). 40 to 50% distal left main (CSA 6.0 mm) 40 to 50% ostial/proximal LAD (CSA 5.4 mm, IFR 0.93) 50% ostial circumflex, 40% ostial high OM1 (IFR 0.98) Patent mid LAD stent with 30% in-stent restenosis 2. Normal intracardiac filling pressure 3. Successful PCI of ostial first diagonal with single drug-eluting stent (2.75 x 12 mm Xience). Recommendations: To PCU for continued monitoring Loaded with clopidogrel 600 mg in [place] Machine Operator Continue dual-antiplatelet therapy for at least 1 year Continue statin, and ASCVD risk factor modification Consult cardiac Rehab Hemodynamics Rest Ao:: 85/42/61 Final Ao: 128/64/84 LV: 103/8 Recommendations Recommendations: PCI without planned CABG Specimens Specimens: None Radiation Exposure (mGy) 2703 Contrast (mls) 120 Anesthesia Moderate 4078-5149 Procedural Complication(s) None Disposition PCU I attest to the content of the Intraoperative Record and any orders documented therein. Any exceptions are noted below. [employer] Card Cath Procedure Codes Cardiac Catheterization Procedure 1: Cardiovascular Cath Procedures: 67462 Coronaries and LHC (+/-LV) Procedure 2: Cardiovascular Cath Procedures: 26937 (Doppler) Pressure Wire Procedure 3: Cardiovascular Cath Procedures: 06551 (Doppler) Pressure Wire Addl vessel Therapeutic Services & Ancillary Procedure 1: Cardiovascular Tx and Anc Procedures: 72920 IV Ultrasound (Coronary or Graft) Moderate Sedation Procedure 1: Sedation/Anesthesia: 60513 Mod Sedation by the same physician;Init15 Min Child Age 5 & Up Procedure 2: Sedation/Anesthesia: 35399 Mod Sedation by the same physician; Ea Add Minutes Stenting Procedure 1: Cardiovascular Stent Procedures: 15598 Perc transcatheter placement of intracoronary stent(s), with ang PG Care Time/CCT Total # of Minutes Spent Total Time Spent with Patient: Total time spent is greater than 50% in coordination of care (as documented) at patient's floor/unit and/or counseling patient:
--- NOTE | 2023-01-14 23:28 | Cardiology Consultation ---
Date of Consultation January 14, 2023 Assessment & Plan (1) CAD (coronary atherosclerotic disease): BONNIE to ostial D1 (01/2023), 2 BONNIE to mid LAD (2010) Intermediate distal left main/proximal LAD/ostial circumflex disease (01/2023) 2. DyslipidemiaLDL 110 3. [id number] 6.3 4. Hypertension 5. Questionable medical nonadherence 6. Preserved LV function Patient doing well following PCI to diagonal today. Discussed findings of moderate to severe distal left main/ostial LAD/ostial circumflex disease with patient and his . Strongly recommended aggressive ASCVD risk factor modification as likely would need bypass surgery if current disease progresses in the future. Continue DAPT with aspirin, clopidogrel for at least 6 months. Likely extended P2Y12 in the setting of multivessel disease Previously intolerant to rosuvastatin/pravastatin. Currently tolerating moderate atorvastatin. Plan to increase to 40 mg daily. Also add ezetimibe 10 mg daily. Target LDL <70 Discussed dietary, lifestyle modification Discussed cardiac rehab as an outpatient Monitor on telemetry overnight. If remains stable will likely home tomorrow. Follow-up with cardiology in 1 to 2 weeks History of Present Illness Attending Physician: Ajay Ross MD History of Present Illness Mr. Mejia is a very pleasant 62-year-old man with a history of coronary a rtery disease admitted currently with suspicion for ACS. Patient previously followed by Dr. Roshan Camarena. Was scheduled to see [facility] cardiology later this month. Other medical issues include hypertension, dyslipidemia, GERD, diverticulosis. Reported history of medical adherence (taking aspirin, no longer taking statin due to muscle aches and not taking antihypertensive) History of coronary artery disease post BONNIE to mid LAD in 2010. Reports substernal chest pain symptoms, normal stress, prior to catheterization 05/2010. Later underwent repeat catheterization PCI with additional stent to LAD 10/2010. Post PCIs had improvement in symptoms. Last 11/2011 reportedly showed 20% LAD ISR and 30% ostial diagonal disease. Last exercise stress echo 03/2021 normal (89% MPHR, 10: 40, 9 METS. Reports that developed similar chest pain approximately 2 days ago. Became suddenly while at rest. Since that time has had intermittent episodes of pain primarily at rest and improved with nitroglycerin. Presented to ED yesterday where ECG showed sinus rhythm without ST changes, HS TropI negative x3. Resting echo today showed normal function with no regional wall motion abnormalities. Underwent cardiac catheterization today due to patient's and in part is concerned that prior stress test had with severe disease. Cardiac cath revealed multivessel disease with 40 to 50% distal left main/ostial LAD disease, patent mid LAD stent with 30% ISR, 50% ostial LCx and 80% ostial D1 which was significant by IFR. Had single BONNIE placed to diagonal with good angiographic. Postprocedure patient additional chest pain. Family history: Denies premature CAD. Mother and father both had bypass in 70s Social history. Remote smoker. . 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 Allergies Allergy/AdvReac Type Severity Reaction Status Date / Time pravastatin AdvReac "Didn't Verified 01/13/23 15:04 feel good" rosuvastatin [From Crestor] AdvReac Muscle Pain Verified 01/13/23 15:04 Home Medications Medication Instructions Recorded Confirmed Type aspirin 81 mg tablet,delayed 81 mg PO DAILY 01/06/23 01/13/23 History release (Adult Aspirin Regimen) ascorbic acid (vitamin C) 1,000 mg 1,000 mg PO DAILY 01/13/23 01/13/23 History tablet (Vitamin C) atorvastatin 20 mg tablet 20 mg PO DAILY 01/13/23 01/13/23 History multivitamin 2 tab PO DAILY 01/13/23 01/13/23 History nitroglycerin 0.4 mg sublingual See Rx Instructions .Route .COMPLEX 01/13/23 01/13/23 History tablet Patient History Medical History CAD (coronary atherosclerotic disease) HLD (hyperlipidemia) HTN (hypertension) with goal to be determined Surgical History (Updated 01/13/23 @ 16:05 by Renae Nugent PA-C) H/O shoulder surgery Family History (Updated 01/13/23 @ 16:19 by Renae Nugent PA-C) Mother Coronary heart disease bypass in 70s Father Coronary heart disease bypass in 70s Social History Smoking Status: Former smoker Hx Alcohol Use: No Hx Substance Use: No Preferred Language: Liberian Communication Ability: Effective Commercial Crabber Required: No Beliefs That Will Affect Care: None Current Living Situation: Spouse Current Living Situation Comment: Lives at home with Feels Safe at Home: Yes Safety Concerns: Feels Safe At This Time Assistive Devices: None Review of Systems Review of Systems: All systems reviewed & are unremarkable except as noted in HPI & below Physical Exam Physical Exam: General: Comfortable HEENT: Sclerae anicteric Lungs: Clear to auscultation bilaterally, no crackles or wheezes Cardiac: Regular rate and rhythm, no murmurs. Vascular: 2+ radial, DP pulses. No bruits Abdomen: Soft, nontender Extremities: Well perfused, no peripheral edema Neuro: Nonfocal Psych: Alert orient x3, normal affect and mood Results & Data Vital Signs (Past 12 Hours) Vital Signs Temp Pulse Pulse Resp BP BP Pulse Ox 01/14/23 23:01 98.6 F 58 L 18 111/62 93 01/14/23 19:44 97.7 F 54 L 18 113/64 01/14/23 18:57 01/14/23 16:23 128/71 01/14/23 15:23 61 18 120/68 01/14/23 14:53 57 L 116/52 L 01/14/23 14:23 97.7 F 54 L 18 144/82 H 96 01/14/23 13:45 52 L 16 136/72 94 01/14/23 13:30 52 L 16 128/65 94 01/14/23 13:15 51 L 16 113/65 94 01/14/23 13:00 52 L 16 113/64 94 Pulse Ox O2 Del Method O2 Del Method 01/14/23 23:01 Room Air 01/14/23 19:44 Room Air 01/14/23 18:57 94 Room Air 01/14/23 16:23 01/14/23 15:23 01/14/23 14:53 01/14/23 14:23 Room Air 01/14/23 13:45 Room Air 01/14/23 13:30 Room Air 01/14/23 13:15 Room Air 01/14/23 13:00 Room Air PG Care Time/CCT Total # of Minutes Spent Total Time Spent with Patient: Total time spent is greater than 50% in coordination of care (as documented) at patient's floor/unit and/or counseling patient: Coding Level of Care Code 86139 IN/OBS CONSULT LVL 4,60M Diagnoses CAD (coronary atherosclerotic disease) I25.10
[2023-01-15] MEDS: lisinopril 5 MG TAB PO SCH (08:55)
[2023-01-15] MEDS: ASPIRIN 81 MG ECTAB PO SCH (08:55)
[2023-01-15] MEDS: ATORVASTATIN 20 MG TAB PO SCH (08:55)
[2023-01-15] MEDS: HEPARIN SOD 5,000 UNIT/0.5 ML VIAL SQ SCH (08:55)
[2023-01-15] MEDS ORDERED: CLOPIDOGREL BISULFATE 75 MG TAB PO SCH (09:00)
[2023-01-15] MEDS: FAMOTIDINE 20 MG in SYRINGE 3 ML IV SCH (09:02)
--- NOTE | 2023-01-15 11:54 | Discharge Summary ---
Date of Service January 15, 2023 Admission HPI Per Admitting Provider 62yo male with PMHx significant for CAD (cath 2010 with BONNIE to LAD, positive stress testing in November 2011 and cath following showing stent present in proximal LAD which has 20% in-stent restenosis, 30% ostial diagonal disease present) presenting with mid chest pain x 2 days. Most recent exercise echo Mar 2021 without inducible ischemia. Pain reported present at rest, lasting about 15minutes ago starting 2 days ago. He reports he had taken a nitro w/ improvement yesterday w/ pain/diaphoresis and then recurrence of pain in the evening and took another dose of nitro in the evening. He denies taking any viagra at that time. Per patient/, his pain occurs at rest and is improved with activity and had been that way w/ his prior stent which he feels this pain is similar to. Pain is mid-sternum, without radiation. Some improvement reported since nitropaste in place, pain not increased witnessing patient ambulating back from the bathroom. BP 201/112 on arrival, currently 149/86. No lightheaded/dizziness, nausea/vomiting. He is NOT on BP medication at present, but discussed likely benefit for medical management. Denies high salt diet/processed meats/hot dogs/soups/etc. does a lot of the cooking, does endorse using sea salt when cooking. No smoking/chewing tobacco, alcohol use reported. Typically is very active laly at baseline. When asked about any underlying reflux, he does note he does have some reflux but that this pain is different. Not on any PPI/H2. He notes he takes OTC Gaviscom for reflux pain when this occurs, picture on his phone. Family history with mom/dad w/ CAD, reports they had bypass in their 70s. He notes he used to bring his mom over for office visits with Dr Love and was planning to switch to [employer] cards w/ Dr Love but schedule full and getting in next week with Dr Silveira. He is also in need of a new primary care provider. Of note, patient did have right shoulder surgery in the past year in [place], reported no post-operative complications. They are hoping to travel to [place] next (via care) ER Course: CXR w/o acute process WBC wnl, noting elevated lymphocytes, naresh/flow pending per protocol. Trop 5.0. EKG w/ NSR, no ST segment changes Given 324mg ASA on arrival (does endorse he has been taking a baby aspirin daily) Full code Admission Exam Per Admitting Provider General: WD/WN male ambulating back from bathroom, at bedside, NAD HEENT: head normocephalic, atraumatic, mmm, trachea midline Chest: nontender Resp: CTA, no w/c/r, on room air CV: regular (slightly bradycardic to the 50s), no significant mrg, no pitting edema/calf tenderness, pulses palpable GI: +BS, soft/NT no welch MSK/Neuro: prior R shoulder surgery noted, nonfocal on exam, no slurred speech/facial droop Psych: AOx3, pleasant and cooperative Principal Diagnosis coronary artery disease s/p stent placed in diagonal branch Discharge Exam general: Awake, conversant Heart: S1, S2/regular rate and rhythm, no murmur rubs or gallops Lungs: Clear to auscultation bilaterally. Normal effort Abdomen: Soft/nontender/nondistended. No hepatosplenomegaly Extremities: No clubbing/cyanosis. No edema Behavior: Appropriate, cooperative Discharge Data Allergies Allergy/AdvReac Type Severity Reaction Status Date / Time pravastatin AdvReac "Didn't Verified 01/13/23 15:04 feel good" rosuvastatin [From Crestor] AdvReac Muscle Pain Verified 01/13/23 15:04 Consultations 01/13/23 14:56 ED Decision to Admit Stat 01/13/23 15:07 Consult Cardiology Routine 01/15/23 08:32 Consult [facility] commercial [facility] Routine Procedures Performed Operation Date: 01/14/23 11:00 Actual Procedures p Cath, Left with Cors and Vent - Federico Silveira MD s Cineradiography w/Routine Exam - Federico Silveira MD s IVUS Coronary Single Vessel - Federico Silveira MD s Fraction Flow [place] SGL Ves - Federico Silveira MD p Drug Eluting Stent SGl Vessel - Federico Silveira MD Ordered Studies 01/14/23 11:25 CL Cath Imgs for PACS use only Urgent 01/14/23 15:12 CL IVUS Coronary Single Vessel Routine Hospital Course (1) Chest pain: 62yo male w/ some noncompliance w/ medical management at home with hx CAD/BONNIE to LAD and 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 CXR w/o acute process EKG NSR without ST elevation, trop negative cardiology consulted The [facility] was [facility] Patient ended up having a drug-eluting stent placed in the first diagonal artery. Also has intermediate distal LM/proximal LAD disease. No surgery yet. Noted that he was started on Plavix Continue Lipitor, aspirin, STACIA inhibitor (2) CAD (coronary atherosclerotic disease): Hx CAD s/p BONNIE to LAD w/ instent-stenosis in November 2011, rec'd to continue medical management and aggressive risk factor/lifestyle modifications. Followed previously by juan francisco wynn, Dr Sabino Love but switching to Dr Silveira -- office visit in August noting BP 140/80s, NOT taking antihypertensives Compliance w/ medical regiment encouraged Noted A1c of 6.3. patient is not known to be a diabetic. Patient states that he does not want to get started on hypoglycemic agents and wants to work on lifestyle modification and diet control. Medical compliance emphasized Patient was informed that he has progressive disease and if this continues, he will need open heart surgery soon. Lifestyle modification, medical compliance, risk modification emphasized (3) HTN (hypertension) with goal to be determined: BP elevated on admission significantly to 200s/100s, nitropaste provided Per most recent cardiology note from August 2022 noting patient w/ uncontrolled HTN, not interesting in taking his lisinopril at that time -- encouraged compliance, consider switching to losartan if isssues Low salt diet encouraged AHA diet Monitor BP (4) HLD (hyperlipidemia): Also noting uncontrolled cholesterol and was provided GoodRx coupon for 12.18$ for 90 day supply but reported too expensive during prior office visit -- he notes he had not been taking this but has been more compliant, but not taking every day Given hx CAD/instent thrombosis as above, likely should be on high intensity statin. Issues w/ pravastatin/crestor in the past Patient is being discharged on Lipitor 40 mg and Zetia Plan Discharge today with outpatient follow-up with cardiology in 2 weeks and PCP in 1 week Total Time Total Time Spent Total Time Spent (In Minutes): 35 Discharge Plan Discharge Items Patient Disposition: Home - Self-Care Reason For Visit: CHEST PAIN R/O ACS Discharge Diagnosis: coronary artery disease s/p stent placed in diagonal branch Condition on Discharge: Fair Activity: Resume your previous activity Non-emergency contact: Primary Care Provider Call non-emergency contact if: you have any medication questions and your symptoms worsen Follow-up/Referrals: Federico Silveira MD [Physician] - 01/24/23 12:45 pm (Follow up scheduled on 01/24/23 @ 12:45 ) Cleopatra Landrum DO [Physician] - (Dr. Landrum's office will be calling you with an appointment) Diet: Carb Consistent or DM2 and Heart Healthy Addtl Attending Provider Instructions: Advised to follow-up with PCP in 1 week Advised to follow-up with cardiology in 10 days Advised on lifestyle modification, dietary and medication compliance You have progressing coronary artery disease. Your disease will proceed to needing surgery if we are not able to achieve aggressive risk factor modification Pending Studies at Discharge: No Stand-Alone Forms: My [facility] Medications and DC Order Prescriptions: New clopidogrel 75 mg Tablet 75 mg PO QAM 30 Days Qty: 30 0RF ezetimibe 10 mg tablet 10 mg PO DAILY Qty: 30 0RF atorvastatin [Lipitor] 40 mg tablet 40 mg PO HS Qty: 30 0RF lisinopril [Zestril] 5 mg Tablet 5 mg PO QAM 30 Days Qty: 30 0RF Continued aspirin [Adult Aspirin Regimen] 81 mg tablet,delayed release (DR/EC) 81 mg PO DAILY multivitamin Tablet 2 tab PO DAILY ascorbic acid (vitamin C) [Vitamin C] 1,000 mg Tablet 1,000 mg PO DAILY nitroglycerin 0.4 mg tablet, sublingual See Rx Instructions .ROUTE .COMPLEX Rx Instructions: Place 1 tablet under the tongue every 5 minutes as needed for pain, chest Discontinued atorvastatin 20 mg Tablet 20 mg PO DAILY Discharge Orders: Discharge Order (Routine); Ordered 01/15/23 Ordered By: Ajay Jarrell/Other Patient Handouts: Prediabetes, 5 Steps for Eating Healthier Admission Data Admit Date/Time: 01/13/23 16:18 Attending Provider: Ajay Ross Admit Provider: Duarte Mccarty Primary Care Provider: PCP,NO Other Providers: Duarte Mccarty ; Hiro Love Other Interventions: Discharge Summary Assessment (RN) Last Done: 01/15/23 12:02 Coding Level of Care Code 30531 INP/OBS DISCH >30 MIN Diagnoses Chest pain R07.9 CAD (coronary atherosclerotic disease) I25.10 HTN (hypertension) with goal to be determined I10 HLD (hyperlipidemia) E78.5
--- NOTE | 2023-01-15 12:18 | Cardiology Progress Note ---
Date of Service January 15, 2023 Assessment & Plan (1) CAD (coronary atherosclerotic disease): Plan: BONNIE to ostial D1 (01/2023), 2 BONNIE to mid LAD (2010) Intermediate distal left main/proximal LAD/ostial circumflex disease (01/2023) 2. DyslipidemiaLDL 110 3. [id number] 6.3 4. Hypertension 5. Questionable medical nonadherence 6. Preserved LV function Stable from a cardiac standpoint post PCI yesterday. OK for discharge today. Home on: -- DAPT with ASA/Clopidogrel for at least 6 months. -- Increased atorvastatin 40mg daily -- new Ezetimibe 10mg daily Follow-up with me in 1-2 weeks. Admission and Anticipated Discharge Date Admission Date: January 13, 2023 Subjective Feeling well this morning. No recurrent chest pain/pressure. Up walking laps in halls. Tele reviewed - no events. Review of Systems Review of Systems: All systems reviewed & are unremarkable except as noted in HPI & below Physical Exam Physical Exam: General: Comfortable HEENT: Sclerae anicteric Lungs: Clear to auscultation bilaterally, no crackles or wheezes Cardiac: Regular rate and rhythm, no murmurs. Vascular: 2+ radial no hematoma or ecchymosis at RRA access site. Abdomen: Soft, nontender Extremities: Well perfused, no peripheral edema Neuro: Nonfocal Psych: Alert orient x3, normal affect and mood Results & Data Vital Signs (Past 12 Hours) Vital Signs Temp Pulse Pulse Pulse Resp BP BP 01/15/23 12:02 99.7 F H 58 L 56 L 17 115/76 98/64 L 01/15/23 11:51 99.7 F H 56 L 17 98/64 L 01/15/23 11:38 53 L 01/15/23 07:48 98.1 F 57 L 18 115/76 Pulse Ox O2 Del Method 01/15/23 12:02 96 01/15/23 11:51 96 Room Air 01/15/23 11:38 01/15/23 07:48 97 Room Air PG Care Time/CCT Total # of Minutes Spent Total Time Spent with Patient: Total time spent is greater than 50% in coordination of care (as documented) at patient's floor/unit and/or counseling patient: Coding Level of Care Code 05478 SUB INP/OBS CARE 3/50MIN Diagnoses CAD (coronary atherosclerotic disease) I25.10
== END 2023-01-15 13:43 | disposition home or self-care (01) ==
LOC: ED 12:54 → EDINP 12:54 → SUATTDRO 16:18 → 2N 18:58 → 2E 01-14 14:23